=== PATIENT | male | born 1980 | race Caucasian/White ===

== ENCOUNTER 2017-02-20 03:21 | Emergency (ER) | payer MEDICARE, OTHER, BC ==
[~2017-02-20] VITALS: Ht 180.3 cm; Wt 110.9 kg
[~2017-02-20 03:21] MED LIST: CLARITIN 1010 MG/TAB PO; DOXYCYCLINE 10100 MG PO; ENSURE PLUS 24240 ML PO; IBUPROFEN800 MG PO; INDERAL 20MG20 MG PO; LEXAPRO20 MG PO; LIORESAL 1010 MG/TAB PO; LORTAB 10/500 51 TAB PO; LOTRIMIN1% TP; MACROBID 1100 MG/CAP PO; MILK OF MA400 MG/52; MULTI VITAMINS1 TAB PO; NASAL MOISTURIZ45 ML NS; NIZORAL SHAMPO120 M1 TP; NO HOME MEDICATIONS; NORCO 325 MG-51 TAB PO; NORVASC 5MG5 MG/TAB PO; OMEPRAZOLE; OMNICEF 300MG300 MG PO; PERCOCET 5/321 UDTAB PO; PHENERGAN25 MG RC; PHENTERMINE HCL PO; PRILOSEC10 MG PO; PROVIGIL200 MG PO; RITALIN10 MG PO; ROXICODONE 55 MG/TAB PO; SENOKOT8.6 MG PO; TRIAMCINOLONE A15 GM TP; TYLENOL 325MG325 MG PO; ULTRAM 50MG TAB50 MG PO; VOLTAREN50 MG PO; XARELTO10 MG PO; ZESTRIL 5MG5 MG PO; ZOFRAN 4MG T4 MG/TAB PO
[2017-02-20 03:32] VITALS: BP 125/80; PULSE 100; TEMP 98.3
[2017-02-20] MEDS ORDERED: DOXYCYCLINE 10100 MG PO (04:31)
[2017-02-20] MEDS ORDERED: NIZORAL CR 30GM TOP (04:38)
== END 2017-02-20 04:51 | disposition home or self-care (01) ==
LOC: COL.ER 03:21
DX: L03.314 Cellulitis of groin (principal); B96.89 Other specified bacterial agents as the cause of diseases classified elsewhere; B35.6 Tinea cruris

== ENCOUNTER → 2017-10-09 | Outpatient (CLI) | payer BC, MEDICARE, OTHER ==
[~2017-10-09] MED LIST changes: +NIZORAL CR 30GM TOP
== END ==
LOC: ZCOL.LAB 16:40
DX: Z11.3 Encounter for screening for infections with a predominantly sexual mode of transmission (principal)

== ENCOUNTER 2020-01-18 03:14 | Emergency (ER) | payer MEDICARE, BC, OTHER ==
[~2020-01-18] VITALS: Ht 180.3 cm; Wt 113.6 kg
[2020-01-18 03:26] VITALS: TEMP 97.4
[2020-01-18 05:01] LABS: COLLECTION METHOD CATHETER
[2020-01-18 05:08] LABS: MUCOUS Present /lpf; PH 5 (5-8); SQUAMOUS EPITHELIAL None Seen /hpf; URINE APPEARANCE Clear; URINE BACTERIA None Seen /hpf; URINE BILIRUBIN Negative (NEGATIVE); URINE BLOOD Negative (NEGATIVE); URINE COLOR Yellow; URINE GLUCOSE Negative (NEGATIVE); URINE KETONE Negative (NEGATIVE); URINE LEUKOCYTE ESTERASE Negative (NEGATIVE); URINE NITRATE Negative (NEGATIVE); URINE PROTEIN(semi-quant) 1+ (NEGATIVE); URINE RBC 0-2 /hpf; URINE UROBILINOGEN Negative (NEGATIVE)
[2020-01-18 05:19] LABS: TRICYCLIC ANTIDEPRESS URINE NEGATIVE
[2020-01-18] MEDS ORDERED: NORCO 325 MG-51 TAB PO (06:19)
[2020-01-18] MEDS ORDERED: ZOFRAN ODT4 MG PO (06:19)
[2020-01-18 06:33] VITALS: BP 163/78; PULSE 51
== END 2020-01-18 06:33 | disposition home or self-care (01) ==
LOC: COL.ER 03:14
PROVIDERS: Emergency Medicine
DX: N20.0 Calculus of kidney (principal); F17.210 Nicotine dependence, cigarettes, uncomplicated; Z88.8 Allergy status to other drugs, medicaments and biological substances
CPT/HCPCS: J1885; J2405; J7030